=== PATIENT | male | born 1955 | race Caucasian/White ===

== ENCOUNTER 2018-11-25 05:34 | Day surgery (SDC) | payer BC ==
[2018-11-25] MEDS ORDERED: Dextrose 5%-Lactated Ringers 1,000 ML IV SCH (06:00)
[2018-11-25] MEDS ORDERED: Glycopyrrolate 0.2 MG/ML 2 ML SDV IVPUSH ONE (06:30)
[2018-11-25] MEDS ORDERED: Midazolam 1 MG/ML 2 ML SDV ONE (07:07)
[2018-11-25] MEDS ORDERED: fentaNYL 100 MCG/2 ML SDV ONE (07:07)
[2018-11-25] MEDS ORDERED: Propofol 200 MG/20 ML SDV ONE ×2 (07:07→07:38)
[2018-11-25] MEDS ORDERED: Pantoprazole 40 MG Vial IVPUSH ONE (08:04)
--- NOTE | 2018-12-05 10:30 | OR ---
DATE OF PROCEDURE: 11/25/2018 PREOPERATIVE DIAGNOSES: 1. Upper abdominal pain. 2. Indications for screening colonoscopy. POSTOPERATIVE DIAGNOSES: 1. Upper abdominal pain with patchy antral gastritis and duodenitis. 2. Normal colonoscopic examination. 3. New onset of atrial fibrillation. PROCEDURES: 1. Esophagogastroduodenoscopy with biopsies of antrum for CLOtest. 2. Flexible colonoscopy. ANESTHESIA: IV sedation. INDICATIONS FOR PROCEDURE: A 63-year-old presenting with some ongoing upper abdominal pain. He is undergoing upper GI endoscopy with biopsies as indicated and also colonoscopy with biopsies and/or polypectomy as indicated. Potential risks including bleeding and perforation were discussed, and the patient wishes to proceed. DETAILS OF PROCEDURE: The patient was taken to the operating room, placed in a left lateral decubitus position. IV sedation was administered and the upper GI endoscope was passed orally through the length of the esophagus into the stomach with retroflexion view of the fundus, thereafter through the pyloric channel into the junction of the third and fourth portions of the duodenum. Findings included normal hypopharynx, larynx, upper esophageal sphincter, and esophageal body. At the EG junction, no significant hiatal hernia or inflammation was noted. Within the stomach, retroflexion once again confirmed no significant hiatal hernia. In the antrum, there was some patchy reddened area without erosions or ulcers. This patchy redness then continued into the duodenal bulb. Beyond the duodenal bulb, the findings normalized and there were no erosions or ulcers within the duodenum. At this point, biopsies were obtained from the antrum and sent for CLOtest for H. pylori. Minimal bleeding from the biopsy sites was seen and the procedure then concluded. Attention was then taken to the colonoscopy. Initial digital rectal exam was performed, it was unremarkable. Colonoscope was then passed into the rectum with retroflexion revealing uncomplicated hemorrhoidal columns. Scope was then passed along the cecum. The prep was fairly good with there only being a small amount of liquid and a few scattered solid areas of stool. To that level, there was no pathology seen, no areas of diverticula, no areas of colitis. No polyps or other signs of neoplasia. The scope was then withdrawn, the above findings reconfirmed, and the procedure concluded. The patient was taken to the recovery room in satisfactory condition. With regard to the patient's upper abdominal pain, the upper GI endoscopic findings would appear not to well explain the patient's pain. We will therefore set him up for a CCK- stimulated HIDA scan. We will empirically put him on some Protonix 40 mg as a trial to see if there is some chance that it is helpful with regard to his symptoms in the interim. With regard to the new onset of atrial fibrillation, the rate is presently in the 80s to 90s and he is hemodynamically stable. The EKG was obtained in the PAR which confirmed the rhythm findings. With regard to this, we will set up an echocardiogram for evaluation of new onset of atrial fibrillation followed by an appointment with Dr. Sesay to follow up on the new finding of atrial fibrillation. I will see the patient back following the HIDA scan as well to discuss those findings and assess things clinically at that point. Jared Nguyen MD /[id number]
== END 2018-11-25 10:07 | disposition home or self-care (01) ==
LOC: JP.SDS 05:34
PROVIDERS: ATTEND Surgery
DX: R10.10 Upper abdominal pain, unspecified (principal); K29.70 Gastritis, unspecified, without bleeding; K29.80 Duodenitis without bleeding; K64.9 Unspecified hemorrhoids; I10 Essential (primary) hypertension; I48.91 Unspecified atrial fibrillation
CPT/HCPCS: 36415; 82150; 83690; 87081; 93005; C9113; J2250; J2704; J3010; J3490; J7042

== ENCOUNTER 2020-11-06 09:10 | Emergency (ER) | payer BC ==
--- NOTE | 2020-11-06 09:47 | EDM.PDOC ---
ED HPI GENERAL MEDICAL PROBLEM - General Chief Complaint: ENT Problem Stated Complaint: NOSEBLEED WONT STOP Time Seen by Provider: 11/06/20 09:30 Source of Information: Reports: Patient, Family History Limitations: Reports: No Limitations - History of Present Illness INITIAL COMMENTS - FREE TEXT/NARRATIVE: 65-year-old male who is on Eliquis for intermittent atrial fibrillation, has been having problems with intermittent right-sided epistaxis since being tested for Covid over a month ago. This morning he developed bleeding at around 7 AM, and it is quite persistent for the past 2 hours. It is right-sided. No recent trauma. Onset: Sudden Duration: Hour(s): (2-1/2 hours) Location: Reports: Other (Bleeding from the right side of his nose) Associated Symptoms: Reports: No Other Symptoms. Denies: Fever/Chills, Shortness of Breath - Related Data Allergies Allergy/AdvReac Type Severity Reaction Status Date / Time No Known Allergies Allergy Verified 11/06/20 09:27 Home Meds: Home Meds Colchicine 0.6 mg PO DAILY PRN 11/24/18 [History] Tamsulosin HCl [Flomax] 0.4 mg PO DAILY 11/24/18 [History] allopurinoL [Zyloprim] 300 mg PO DAILY 11/24/18 [History] amLODIPine Besylate [Norvasc] 10 mg PO DAILY 11/24/18 [History] tadalafiL [Cialis] 5 mg PO ASDIRECTED PRN 11/24/18 [History] Apixaban [Eliquis] 5 mg PO DAILY 11/06/20 [History] Aspirin 81 mg PO DAILY 11/06/20 [History] Metoprolol Succinate 50 mg PO DAILY 11/06/20 [History] Past Medical History HEENT History: Reports: Cataract, Hard of Hearing Genitourinary History: Reports: BPH - Past Surgical History GI Surgical History: Reports: Appendectomy, Colonoscopy Social & Family History - Tobacco Use Tobacco Use Status *Q: Never Tobacco User - Caffeine Use Caffeine Use: Reports: Coffee - Recreational Drug Use Recreational Drug Use: No ED ROS ENT - Review of Systems Review Of Systems: See Below Constitutional: Denies: Fever, Chills Respiratory: Denies: Shortness of Breath Cardiovascular: Denies: Chest Pain GI/Abdominal: Denies: Vomiting Skin: Reports: No Symptoms Neurological: Reports: No Symptoms ED EXAM, ENT - Physical Exam Exam: See Below Exam Limited By: No Limitations General Appearance: Alert, Anxious Nose: Other (Profuse active bleeding from the right nares even after pressure) Respiratory/Chest: No Respiratory Distress Neurological: Alert, Oriented Psychiatric: Anxious Skin: Warm, Dry Course - Vital Signs Last Recorded V/S: Last Vital Signs Temp 99.3 F 11/06/20 09:25 Pulse 110 H 11/06/20 09:25 Resp 14 11/06/20 09:25 BP 139/89 11/06/20 09:25 Pulse Ox 96 11/06/20 09:25 - Orders/Labs/Meds Labs: Laboratory Tests 11/06/20 Range/Units 10:00 WBC 6.0 (4.5-11.0) K/uL RBC 4.27 L (4.30-5.90) M/uL Hgb 13.6 (12.0-15.0) g/dL Hct 41.4 (40.0-54.0) % MCV 97 (80-98) fL MCH 32 H (27-31) pg MCHC 33 (32-36) % Plt Count 250 (150-400) K/uL Neut % (Auto) 74 H (36-66) % Lymph % (Auto) 19 L (24-44) % Winston % (Auto) 6 (2-6) % Eos % (Auto) 1 L (2-4) % Baso % (Auto) 1 (0-1) % - Re-Assessments/Exams Free Text/Narrative Re-Assessment/Exam: 11/06/20 09:47 We asked the patient to aggressively blow clots out of his nose, and after clearing the nasal passages a 7.5 cm rapid Rhino was placed in the right nares without complication. This did stop the bleeding. 11/06/20 10:20 Family was concerned that he "lost so much blood". CBC was checked and his hemoglobin is 13.6. He will return after 24 hours for packing removal. Departure - Departure Time of Disposition: 10:32 Disposition: Home, Self-Care 01 Clinical Impression: Right-sided nosebleed - Discharge Information Instructions: Nosebleed, [id number] Referrals: Berhane Sesay MD [Primary Care Provider] - Forms: ED Department Discharge Care Plan Goals: Hold aspirin through the weekend, and return tomorrow afternoon for packing removal. Return sooner if problems such as persistent bleeding despite the packing. Sepsis Event Note (ED) - Evaluation Sepsis Screening Result: No Definite Risk - Focused Exam Vital Signs: Vital Signs Temp Pulse Resp BP Pulse Ox 11/06/20 09:25 99.3 F 110 H 14 139/89 96
== END 2020-11-06 10:32 | disposition home or self-care (01) ==
LOC: JP.ED 09:10
DX: R04.0 Epistaxis (principal); I48.91 Unspecified atrial fibrillation; N40.0 Benign prostatic hyperplasia without lower urinary tract symptoms; Z79.01 Long term (current) use of anticoagulants; Z79.82 Long term (current) use of aspirin; Z90.49 Acquired absence of other specified parts of digestive tract; Z79.899 Other long term (current) drug therapy
CPT/HCPCS: 30903; 36415; 85025; 99283-25

== ENCOUNTER 2020-12-29 12:16 | Emergency (ER) | payer BC ==
[2020-12-29] MEDS ORDERED: cefTRIAXone 1 GM Vial IM ONE (13:10)
--- NOTE | 2020-12-29 13:16 | EDM.PDOC ---
ED HPI GENERAL MEDICAL PROBLEM - General Chief Complaint: Upper Extremity Injury/Pain Stated Complaint: INJURED RIGHT MIDDLE FINGER Time Seen by Provider: 12/29/20 12:59 Source of Information: Reports: Patient, Family, RN Notes Reviewed History Limitations: Reports: No Limitations - History of Present Illness INITIAL COMMENTS - FREE TEXT/NARRATIVE: 65-year-old gentleman presents emergency department today complaint red swollen finger on his right hand, he has not had any fevers he does have a history of gout he also has a open area on that finger where he describes a cysts which she has to drink every 6 with any - Related Data Allergies Allergy/AdvReac Type Severity Reaction Status Date / Time No Known Allergies Allergy Verified 12/29/20 12:36 Home Meds: Home Meds Colchicine 0.6 mg PO DAILY PRN 11/24/18 [History] Tamsulosin HCl [Flomax] 0.4 mg PO DAILY 11/24/18 [History] allopurinoL [Zyloprim] 300 mg PO DAILY 11/24/18 [History] amLODIPine Besylate [Norvasc] 10 mg PO DAILY 11/24/18 [History] tadalafiL [Cialis] 5 mg PO ASDIRECTED PRN 11/24/18 [History] Apixaban [Eliquis] 5 mg PO BID 11/06/20 [History] Metoprolol Succinate 50 mg PO DAILY 11/06/20 [History] Past Medical History HEENT History: Reports: Cataract, Hard of Hearing Cardiovascular History: Reports: Afib, Hypertension Genitourinary History: Reports: BPH, Other (See Below) Other Genitourinary History: 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 Hematologic History: Reports: Anticoagulation Therapy - Past Surgical History GI Surgical History: Reports: Appendectomy, Colonoscopy Musculoskeletal Surgical History: Reports: Other (See Below) Other Musculoskeletal Surgeries/Procedures:: hip surgery Social & Family History - Tobacco Use Tobacco Use Status *Q: Never Tobacco User - Caffeine Use Caffeine Use: Reports: Coffee Review of Systems - Review of Systems Review Of Systems: See Below Skin: Reports: Rash, Wound, Change in Color ED EXAM, GENERAL - Physical Exam Exam: See Below Free Text/Narrative:: Examination of the right hand I do appreciate some erythema that encompasses majority of digit #3 with some faint red streaking going up into the hand there is some edema to and including the PIP and DIP joints is very tender to the touch and warm to the touch radial pulses +2 Exam Limited By: No Limitations General Appearance: Alert, WD/WN, No Apparent Distress Course - Vital Signs Last Recorded V/S: Last Vital Signs Temp 98.6 F 12/29/20 12:46 Pulse 76 12/29/20 12:46 Resp 15 12/29/20 12:46 BP 146/87 H 12/29/20 12:46 Pulse Ox 97 12/29/20 12:46 - Orders/Labs/Meds Meds: Medications Discontinued Medications Generic Name Dose Route Start Last Admin Trade Name Pasquale PRN Reason Stop Dose Admin Ceftriaxone Sodium 1 gm 12/29/20 13:10 Rocephin IM 12/29/20 13:11 ONETIME ONE Departure - Departure Time of Disposition: 13:15 Disposition: Home, Self-Care 01 Condition: Fair Clinical Impression: Cellulitis of right middle finger - Discharge Information Instructions: Cellulitis, Adult Referrals: Berhane Sesay MD [Primary Care Provider] - Additional Instructions: Take full course of antibiotics, use Tylenol or Motrin as needed for pain control, please followup with your primary care provider in 3-5 days if not better, please call return to the emergency department with worsening of s ymptoms. Sepsis Event Note (ED) - Evaluation Sepsis Screening Result: No Definite Risk - Focused Exam Vital Signs: Vital Signs Temp Pulse Resp BP Pulse Ox 12/29/20 12:46 98.6 F 76 15 146/87 H 97 12/29/20 12:33 98.6 F 76 15 146/87 H 97 - Assessment/Plan Plan: Assessment Acuity = acute Site and laterality = cellulitis digit #3 right hand Etiology = suspicious for bacterial cause Manifestations = none Location of injury = Home Lab values = none Plan Elected to treat empirically 1 g Rocephin IM followed by Keflex 500 mg p.o. 3 times daily for 7 days follow-up primary care in 3 to 5 days if no improvement This note was dictated using [employer] voice recognition software please call with any questions on syntax or grammar.
== END 2020-12-29 13:34 | disposition home or self-care (01) ==
LOC: JP.ED 12:16
DX: L03.011 Cellulitis of right finger (principal); I10 Essential (primary) hypertension; I48.91 Unspecified atrial fibrillation; M10.9 Gout, unspecified; Z79.01 Long term (current) use of anticoagulants; Z79.899 Other long term (current) drug therapy
CPT/HCPCS: 96372; 99283; J0696; 99284